=== PATIENT | male | born 1945 | race Caucasian/White ===

== ENCOUNTER 2019-03-27 18:19 | Inpatient (IN) ==
[2019-03-27] MEDS ORDERED: ZOFRAN IV PRN (20:26)
[2019-03-27] MEDS ORDERED: TYLENOL PO PRN (20:26)
[2019-03-27 21:00] LABS: BASO# 0.03 X1000 (0.0-0.2); BASO% 0.2 % (0.0-0.8); EOS# 0.12 X1000 (0.0-0.7); EOS% 0.9 % (0.0-10.0); HEMATOCRIT 44.4 % (42.0-52.0); HEMOGLOBIN 14.9 g/dL (14.0-18.0); IMM GRAN# 0.02 X1000 (0.0-0.04); IMM GRAN% 0.1 % (0.0-0.5); LYMPH# 1.49 X1000 (1.2-3.4); LYMPH% 11.2 % (20.5-51.1); MCH 29.9 PG (27-31); MCHC 33.6 g/dL (33-37); MONO# 0.97 X1000 (0.11-0.59); MONO% 7.3 % (1.7-9.3); NEUT# 10.72 X1000 (1.4-6.5); NEUT% 80.3 % (42.2-75.2); PLT 180 X1000 (130-400); RBC 4.99 XMIL (4.7-6.1); RDW 13.4 % (11.5-14.5); WBC 13.35 X1000 (4.8-10.8)
[2019-03-27 21:16] LABS: AGAP 13; ALB/GLOB RATIO 1.4; ALKALINE PHOSPHATASE 95 U/L (32-122); BUN 12 mg/dL (8-22); CALCIUM 8.9 mg/dL (8.8-10.2); CHLORIDE 96 mmol/L (98-107); COSMO 274; ESTIMATED GFR > 60; GLUCOSE 99 mg/dL (70-104); GOT 17 U/L (10-34); GPT 15 U/L (10-44); POTASSIUM 3.6 mmol/L (3.5-5.1); SODIUM 137 mmol/L (136-145); TCO2 28 mmol/L (25-35); TOTAL BILIRUBIN 0.94 mg/dL (0.20-1.00); TOTAL PROTEIN 6.8 g/dL (6.3-8.3)
--- NOTE | 2019-03-27 21:36 | Diag Imaging Result Doc PS360 ---
EXAM: CHEST-2 VIEWS - 03/27/2019 HISTORY: fever TECHNIQUE: Chest two views COMPARISON: None. FINDINGS: Heart size is normal. There are scattered calcified granulomas from old granulomatous disease. There is no consolidation, pleural effusion, or pneumothorax identified. There is thoracic spondylosis, DISH, and/or ankylosis noted. IMPRESSION: No evidence of acute disease. Electronically signed by Alexsander Cast 03/27/2019 9:34 PM
[2019-03-27] MEDS: LIPITOR PO SCH (22:31)
[2019-03-27] MEDS: FLOMAX PO SCH (22:31)
[2019-03-27] MEDS: NS 1,000 ML IV SCH (22:32)
[2019-03-27] MEDS: ZOSYN 3.375 GM in NS 50 ML IV SCH (22:32)
[2019-03-27 22:52] LABS: URINE SOURCE CLEAN CATCH
[2019-03-27 23:06] LABS: BILIRUBIN URINE NEGATIVE (NEGATIVE); BLOOD URINE SMALL (NEGATIVE); COLOR YELLOW; GLUCOSE URINE NEGATIVE (NEGATIVE); KETONE URINE 20 mg/dL (NEGATIVE); LEUKOCYTES URINE LARGE (NEGATIVE); NITRITE URINE POSITIVE (NEGATIVE); PROTEIN URINE TRACE mg/dL (NEGATIVE); SP GRAVITY URINE 1.016; TURBIDITY URINE HAZY (CLEAR); UROBILINOGEN URINE NORMAL (NORMAL)
[2019-03-27 23:07] LABS: UR EPITHELIAL CELLS <10 /HPF (<10); URINE BACTERIA 4+ /HPF; URINE RBC <10 /HPF (<10); URINE WBC TNTC /HPF (<10)
[2019-03-28] MEDS ORDERED: FLU VACCINE IM ONE (00:42)
[2019-03-28] MEDS: ZOSYN 3.375 GM in NS 50 ML IV SCH ×4 (03:53→21:58)
[2019-03-28] MEDS ORDERED: PNEUMOVAX 23 IM ONE (05:08)
--- NOTE | 2019-03-28 05:50 | HISTORY AND PHYSICAL ---
PRIMARY CARE PHYSICIAN: Dr. Senthil Crespo. CHIEF COMPLAINT: Intractable nausea and vomiting, dysuria, and fever. HISTORY OF PRESENT ILLNESS: A 73-year-old white male with a complicated past medical history who presents for evaluation of above-mentioned symptoms. Pertinent history of present illness began last . At that time, patient developed acute onset of dizziness and nausea. The patient states that this continued throughout the day, and by Wednesday morning he developed a dysuria. The patient attempted increasing hydration without improvement. By Wednesday night, he developed a hard rigor as well as chills followed by a fever. The patient awoke the next day with similar symptoms. Since that time, he has complained of right flank pain, profound fatigue, and intractable nausea and vomiting with eating or drinking any intake. He presented to my office this evening. His heart rate was noted to be elevated. White count was noted to be elevated. Patient will be admitted to the hospital for full evaluation and management of presumed pyelonephritis with systemic inflammatory response syndrome. PAST MEDICAL HISTORY: 1. Abnormal electrocardiogram with right bundle branch block. 2. Multiple actinic keratoses. 3. Allergic rhinitis. 4. Anxiety/depression. 5. Benign prostatic hypertrophy. 6. Coronary artery disease with elevated CT coronary calcium score. 7. Insomnia. 8. Hypertension. 9. Hearing loss. 10. Hyperlipidemia. 11. Impaired fasting glucose. 12. Low back pain. 13. Erectile dysfunction. 14. Meniere's disease. 15. Obstructive sleep apnea. CURRENT MEDICATIONS: 1. Aspirin 325 mg at bedtime. 2. Atorvastatin 40 mg at bedtime. 3. B-complex vitamin daily. 4. Claritin 10 mg daily. 5. Coenzyme Q10 100 mg daily. 6. Fish Oil 1200 mg daily. 7. Flonase 2 sprays each nostril daily. 8. Fluoxetine 30 mg daily. 9. Hydrochlorothiazide 25 mg daily. 10. Losartan 50 mg twice daily. 11. Potassium chloride 8 mEq daily. 12. Tamsulosin 0.4 mg daily. ALLERGIES: The patient states he is allergic to amlodipine which causes edema, beta blockers, which cause profound fatigue, Prinivil which causes a cough, simvastatin which causes myalgias, spironolactone which causes hyperkalemia, and trazodone which causes fatigue. SOCIAL HISTORY: Patient denies tobacco or illicit drug use. He occasionally uses alcohol. 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 He enjoys woodworking. He exercises intermittently. FAMILY HISTORY: Patient's father passed at age 87 secondary to complications of congestive heart failure. He had a history of a non fatal acute myocardial infarction at age 55. Patient's mother passed at age 88 secondary to complications of aortic valve replacement. She had a history of melanoma. REVIEW OF SYSTEMS: A 12 point review of systems was performed. Pertinent positives and negatives are noted in history of present illness. PHYSICAL EXAMINATION: Temperature 100 degrees, heart rate 122, respirations 16, and blood pressure 129/82. GENERAL: Well nourished, well developed in no acute distress. HEENT: Normocephalic and atraumatic. Pupils equal, round, and reactive to light. Extraocular muscles intact. Sclerae anicteric. [place] conjunctivae. Oral and nasopharynx clear without exudate. NECK: Supple. No lymphadenopathy. No thyromegaly. No bruits auscultated. CARDIOVASCULAR: Tachycardic. Regular rhythm. No significant murmurs, rubs, or gallops. PULMONARY: Clear to auscultation bilaterally. ABDOMEN: Soft, nontender, and nondistended. Positive bowel sounds. EXTREMITIES: Moves all extremities well. No significant clubbing, cyanosis, or edema. NEUROLOGIC: Cranial nerves 2-12 grossly intact. Motor and sensory grossly intact. PSYCHOLOGIC: Examination is appropriate. LABORATORY DATA: White blood cell count 14.9, hemoglobin 15.4, and hematocrit 47.9. Urinalysis reveals 3+ bacteria, 2+ leukocytes, 15 to 20 white blood cells. ASSESSMENT AND PLAN: A 73-year-old white male with past medical history as noted presents for evaluation of fevers, chills, dysuria, intractable nausea and vomiting, and right flank pain. Heart rate is noted to be elevated as is his white blood cell count suggestive of underlying systemic inflammatory response syndrome. The patient will be admitted to the hospital for full evaluation, and management of presumed pyelonephritis with associated nausea, vomiting, and systemic inflammatory response syndrome. 1. Admit to General Medicine. 2. Presumed pyelonephritis-The patient's urine will be taken for culture. We will check blood cultures. We will place patient on Zosyn. We will start IV hydration. We will monitor patient's clinical course very closely. Should patient not develop a quick improvement, we will broaden antibiotic intervention. 3. Intractable nausea and vomiting-We will place patient on IV Zofran as needed. We will follow this. 4. Systemic inflammatory response syndrome-As above, we will check blood cultures. We will start patient on antibiotic intervention as well as aggressive IV hydration. The patient's blood pressure medications will be held for now. 5. Allergic rhinitis-We will continue patient on home medications. 6. Coronary artery disease - We will remain aware. 7. Hypertension. As above, we will hold patient's antihypertensive medications until his infection has stabilized. We will resume this as necessary. 8. Hyperlipidemia-We will continue patient on atorvastatin therapy. 9. Fluid, electrolytes, nutrition: We will monitor electrolytes. Normal saline at 125 mL an hour. 10. Cardiac prudent diet. 11. Prophylaxis. Patient will be placed on subcutaneous Lovenox. cc: Senthil Crespo MD
[2019-03-28] MEDS: CLARITIN PO SCH (09:44)
[2019-03-28] MEDS: ASPIRIN PO SCH (09:44)
[2019-03-28] MEDS: FISH OIL CONCENTRATE PO SCH (09:44)
[2019-03-28] MEDS: FLONASE NAS SCH (09:44)
[2019-03-28] MEDS: PROZAC PO SCH (09:44)
[2019-03-28] MEDS: LOVENOX SUBQ SCH (09:45)
[2019-03-28] MEDS: NS 1,000 ML IV SCH (09:46)
[2019-03-28] MEDS ORDERED: DESYREL PO PRN (19:34)
[2019-03-28] MEDS ORDERED: NS 1,000 ML IV SCH (19:36)
--- NOTE | 2019-03-28 21:47 | PROGRESS NOTE ---
DATE: 03/28/2019 SUBJECTIVE: Upon my arrival this morning, the patient was resting in bed. Overnight, the patient states he continued to have nausea as well as feeling of ill being. He had no evidence of fevers. Throughout the day today, patient's p.o. intake improved slightly. He was able to tolerate liquids and a minimal amount of solid foods. Energy level remains very low. This evening, the patient again is resting in bed. He denies fevers, chills, shortness of breath, or chest discomfort. OBJECTIVE: T-max 98.8 degrees, heart rate 71 to 110, respirations 14 to 18, blood pressure 112 to 152 over 70 to 85.General: Well nourished, well developed, no acute distress. Cardiovascular: Slightly tachycardic. Regular rhythm. No significant murmurs, rubs, or gallops. Pulmonary: Clear to auscultation bilaterally. Abdomen: Soft, nontender, nondistended. Positive bowel sounds. Extremities: Moves all extremities well. No significant clubbing, cyanosis, or edema. Dermatologic: Evaluation reveals no evidence of rash. LABORATORY DATA: None. ASSESSMENT AND PLAN: 1. Presumed pyelonephritis - Urine and blood cultures are both pending. With clinical improvement, we will continue Zosyn therapy. We will continue IV hydration. We will monitor patient's clinical course very closely. 2. Intractable nausea and vomiting - The patient has achieved improvement with no evidence of vomiting in the last 12 hours. Nausea, however, remains present. He is tolerating a modest amount of p.o. We will follow this. 3. Systemic inflammatory response syndrome - Overall, his vital signs are improving. We will recheck white blood cell count in the morning. We will continue IV antibiotics as noted. We will follow blood and urine cultures. 4. Allergic rhinitis - We will continue the patient on home medications. 5. Coronary artery disease - We will continue the patient on optimized medical and nonmedical management. 6. Hypertension - The patient's blood pressure is trending upwards. We will resume losartan therapy. We will follow this. 7. Hyperlipidemia - We will continue patient on atorvastatin therapy. 8. Disposition - At this point, patient continues to require [facility] care in a hospital setting. We will plan discharge home once appropriate. cc: Senthil Crespo MD
[2019-03-28] MEDS: FLOMAX PO SCH (21:58)
[2019-03-28] MEDS: LIPITOR PO SCH (21:58)
[2019-03-28] MEDS: COZAAR PO SCH (22:01)
[2019-03-29] MEDS: ZOSYN 3.375 GM in NS 50 ML IV SCH ×4 (03:16→20:09)
[2019-03-29 05:29] LABS: BASO# 0.02 X1000 (0.0-0.2); BASO% 0.3 % (0.0-0.8); EOS# 0.35 X1000 (0.0-0.7); HEMATOCRIT 42.4 % (42.0-52.0); IMM GRAN# 0.02 X1000 (0.0-0.04); IMM GRAN% 0.3 % (0.0-0.5); LYMPH# 1.19 X1000 (1.2-3.4); LYMPH% 20.3 % (20.5-51.1); MCH 29.8 PG (27-31); MCV 90.2 FL (81-99); MONO% 8.5 % (1.7-9.3); MPV 11.6 FL (7.4-10.4); NEUT# 3.78 X1000 (1.4-6.5); NEUT% 64.6 % (42.2-75.2); PLT 174 X1000 (130-400); RDW 13.5 % (11.5-14.5); WBC 5.86 X1000 (4.8-10.8)
[2019-03-29 06:58] LABS: AGAP 10; ALB/GLOB RATIO 1.4; ALBUMIN 3.3 g/dL (3.5-5.0); ALKALINE PHOSPHATASE 125 U/L (32-122); BUN 12 mg/dL (8-22); CALCIUM 8.2 mg/dL (8.8-10.2); CHLORIDE 104 mmol/L (98-107); COSMO 281; CREATININE 0.9 mg/dL (0.7-1.2); ESTIMATED GFR > 60; GLUCOSE 99 mg/dL (70-104); GOT 15 U/L (10-34); GPT 11 U/L (10-44); POTASSIUM 4.2 mmol/L (3.5-5.1); SODIUM 141 mmol/L (136-145); TCO2 27 mmol/L (25-35); TOTAL BILIRUBIN 0.65 mg/dL (0.20-1.00); TOTAL PROTEIN 5.6 g/dL (6.3-8.3)
[2019-03-29] MEDS: COZAAR PO SCH ×2 (09:15→20:09)
[2019-03-29] MEDS: ASPIRIN PO SCH (09:15)
[2019-03-29] MEDS: FISH OIL CONCENTRATE PO SCH (09:15)
[2019-03-29] MEDS: FLONASE NAS SCH (09:15)
[2019-03-29] MEDS: CLARITIN PO SCH (09:15)
[2019-03-29] MEDS: PROZAC PO SCH (09:16)
[2019-03-29] MEDS: LOVENOX SUBQ SCH (09:16)
--- NOTE | 2019-03-29 20:04 | PROGRESS NOTE ---
DATE: 03/29/2019 SUBJECTIVE: Upon my arrival this morning, patient was resting in bed. Overall, he stated he was feeling better. He continued to have decreased appetite as well as significant fatigue. This evening, upon my arrival, he was sitting upright in bed. The patient noted continued improvement, but very little p.o. intake. He was able to take a shower, but noted profound weakness with doing so. He denies fevers, chills, nausea, vomiting, shortness of breath, or chest discomfort. OBJECTIVE: Temperature max 98.0, heart rate 73 to 110, respirations 16 to 20, blood pressure 108 to 160 over 65 to 83.General: Well nourished, well developed, in no acute distress. Cardiovascular: Regular rate and rhythm. No significant murmurs, rubs, or gallops. Pulmonary: Clear to auscultation bilaterally. Abdomen: Soft, nontender, nondistended. Positive bowel sounds. Extremities: Moves all extremities well. No significant clubbing, cyanosis, or edema. Dermatologic: No evidence of rash. LABORATORY DATA: White blood cell count 5.86, hemoglobin 14.0, hematocrit 42.4, platelet count is 174,000. Sodium 141, potassium 4.2, chloride 104, bicarbonate 27, BUN 12, creatinine 0.9, glucose 99, calcium 8.2. Total bilirubin 0.65, total protein 5.6, albumin 3.3, alkaline phosphatase 125, AST 15, ALT 11. ASSESSMENT AND PLAN: 1. Pyelonephritis. Urine cultures revealed gram-negative rods. Clinically, he is demonstrating improvement. Blood cultures thus far are negative. We will continue Zosyn therapy for now. We will continue IV fluids. I suspect in the next 24-48 hours, patient will be prepared for discharge home. 2. Intractable nausea and vomiting. This has improved. His p.o. intake remains marginal. We will continue to follow this. 3. Systemic inflammatory response syndrome. Clinically, this also has resolved. This likely is a consequence of underlying pyelonephritis. Thus far, blood cultures are negative. 4. Allergic rhinitis. We will continue patient on home medications. 5. Coronary artery disease. We will remain aware. Patient is treated with optimum medical management. He is asymptomatic. 6. Hypertension. The patient's losartan was resumed yesterday. Blood pressure is trending downwards. 7. Hyperlipidemia. We will continue patient on atorvastatin therapy. 8. Disposition. At this point, [facility] to [facility] setting. We will plan discharge home once appropriate. cc: Senthil Crespo MD
[2019-03-29] MEDS: LIPITOR PO SCH (20:09)
[2019-03-29] MEDS: FLOMAX PO SCH (20:09)
[2019-03-30] MEDS: ZOSYN 3.375 GM in NS 50 ML IV SCH ×2 (03:08→09:07)
[2019-03-30 08:50] VITALS: BP 165/86
[2019-03-30] MEDS: CLARITIN PO SCH (09:07)
[2019-03-30] MEDS: PROZAC PO SCH (09:08)
[2019-03-30] MEDS: FLONASE NAS SCH (09:08)
[2019-03-30] MEDS: COZAAR PO SCH (09:08)
[2019-03-30] MEDS: ASPIRIN PO SCH (09:08)
[2019-03-30] MEDS: FISH OIL CONCENTRATE PO SCH (09:08)
[2019-03-30] MEDS: LOVENOX SUBQ SCH (09:22)
--- NOTE | 2019-03-31 19:03 | DISCHARGE SUMMARY ---
ADMISSION DATE: 03/27/2019 DISCHARGE DATE: 03/30/2019 ADMISSION DIAGNOSES: 1. Intractable nausea and vomiting. 2. Dysuria. 3. Fever. DISCHARGE DIAGNOSES: 1. Pyelonephritis secondary to Klebsiella pneumonia. 2. Intractable nausea and vomiting, improved. 3. Systemic inflammatory response syndrome, improved. 4. Allergic rhinitis, present on arrival. 5. Coronary artery disease, present on arrival. 6. Hypertension, present on arrival. 7. Hyperlipidemia, present on arrival. CONSULTATIONS: None. PROCEDURES: A chest x-ray was performed on 03/27/2019, which revealed no evidence of acute disease. HISTORY AND PHYSICAL EXAMINATION: See admit note. PHYSICAL EXAMINATION PRIOR TO DISCHARGE: Vital signs: Temperature 97.6 degrees, heart rate 83, respirations 16, blood pressure is 165/86. General: Well nourished, well developed, no acute distress. Cardiovascular: Regular rate and rhythm. No significant murmurs, rubs, or gallops. Pulmonary: Clear to auscultation bilaterally. Abdomen: Soft, nontender, nondistended. Positive bowel sounds. Extremities: Moves all extremities well. No significant clubbing, cyanosis, or edema. Dermatologic: Evaluation reveals no evidence of rash. LABORATORY DATA PRIOR TO DISCHARGE: None. HOSPITAL COURSE: Patient was admitted as per history and physical examination. Hospital course per condition is as follows. 1. Pyelonephritis--Upon admission, patient was noted to have abnormal urinalysis with associated nausea, vomiting, and flank pain consistent with underlying pyelonephritis. Urine culture was performed ultimately revealing Klebsiella pneumoniae. While hospitalized, patient was treated with Zosyn therapy with improvement. Patient will be discharged home with Cefdinir 300 mg twice daily for the next 10 days. We will follow his clinical course closely. 2. Intractable nausea and vomiting--Patient has achieved improvement while hospitalized with treatment of his pyelonephritis. He will be discharged home, slowly advancing his diet. 3. Systemic inflammatory response syndrome--Upon admission, patient reached criteria. With treatment of his underlying infection, he achieved improvement. At the time of discharge, patient no longer met criteria. 4. Allergic rhinitis--Patient was continued on home medications while hospitalized with success. 5. Coronary artery disease--The patient was continued on his home medical regimen. He was asymptomatic while hospitalized. 6. Hypertension--Patient's antihypertensive regimen was held initially while hospitalized. As his blood pressure trended upwards, this was resumed. At time of discharge, blood pressure was slightly elevated. We will continue his home regimen with close followup. 7. Hyperlipidemia--The patient was continued on atorvastatin therapy while hospitalized. DISCHARGE CONDITION: Good. DISPOSITION: Discharge to home. MEDICATIONS: 1. Hydrochlorothiazide 25 mg daily as needed. 2. Potassium chloride 8 mEq daily as needed. 3. Aspirin 325 mg daily. 4. Claritin 10 mg daily. 5. Losartan 50 mg twice daily. 6. Fish oil 1000 mg daily. 7. Tamsulosin 0.4 mg at bedtime. 8. Fluticasone nasal spray 2 sprays each nostril daily. 9. Atorvastatin 40 mg at bedtime. 10. Acetaminophen 650 mg every 6 hours as needed. 11. Fluoxetine 30 mg daily. 12. Cefdinir 300 mg twice daily. FOLLOWUP: The patient is to follow with me in approximately 1 to 2 weeks. cc: Senthil Crespo MD
== END 2019-03-30 11:04 | disposition home or self-care (01) | DRG 872 ==
LOC: DIRADM 18:19 → 1N 19:26
PROVIDERS: ADMIT Internal Medicine; ATTEND Internal Medicine